=== PATIENT | male | born 1965 | race Asian ===

== ENCOUNTER → 2019-12-17 | Outpatient (CLI) | payer OTHER ==
--- NOTE | 2019-12-17 17:09 | Diagnostic Imaging Report ---
Indication: Cough Technique: 2 views of the chest Comparison: 12/31/2015 Findings: The lungs and pleural spaces are clear. The heart size is normal. Impression: Negative
== END | disposition home or self-care (01) ==
LOC: RAD 15:55
DX: R05 Cough (principal); R06.02 Shortness of breath; Z77.22 Contact with and (suspected) exposure to environmental tobacco smoke (acute) (chronic)
CPT/HCPCS: 71046